=== PATIENT | male | born 1940 | race Caucasian/White ===

== ENCOUNTER 2017-01-14 20:07 | Emergency (ER) | payer OTHER ==
[2017-01-14] MEDS ORDERED: HYDROmorphONE/DILAUDID 1 MG/ML INJ IVP ONE (20:27)
[2017-01-14 20:33] VITALS: RESP 18; TEMP 98.2
--- NOTE | 2017-01-14 20:36 | EDPHY ---
H & P Stated Complaint: injuried testicles R > L. Time Seen by Provider: 01/14/17 20:26 HPI/ROS: CHIEF COMPLAINT: Bilateral testicular pain HISTORY OF PRESENT ILLNESS: Patient is a 76-year-old man with a history of polycythemia who comes to the emergency department complaining of bilateral testicular pain right greater than left. He states that this morning he set on a soft couch and sat on top of them. They have been hurting ever since. They are tender to the touch. No swelling or deformity. No discoloration. No discharge. Dysuria. He denies other injuries. No fevers. REVIEW OF SYSTEMS: Constitutional: denies: chills, fever, recent illness, recent injury EENTM: denies: blurred vision, double vision, nose congestion Respiratory: denies: cough, shortness of breath Cardiac: denies: chest pain, irregular heart rate, lightheadedness, palpitations Gastrointestinal/Abdominal: denies: abdominal pain, diarrhea, nausea, vomiting, blood streaked stools Genitourinary: See HPI Musculoskeletal: denies: joint pain, muscle pain Skin: denies: lesions, rash, jaundice, bruising Neurological: denies: headache, numbness, paresthesia, tingling, dizziness, weakness Hematologic/Lymphatic: denies: blood clots, easy bleeding, easy bruising Immunologic/allergic: denies: HIV/AIDS, transplant EXAM: GENERAL: Thin and in no acute distress. HEAD: Atraumatic, normocephalic. EYES: Pupils equal round and reactive to light, extraocular movements intact, sclera anicteric, conjunctiva are normal. ENT: TMs normal, nares patent, oropharynx clear without exudates. Moist mucous membranes. NECK: Normal range of motion, supple without lymphadenopathy or JVD. LUNGS: Breath sounds clear to auscultation bilaterally and equal. No wheezes rales or rhonchi. HEART: Regular rate and rhythm without murmurs, rubs or gallops. ABDOMEN: Soft, nontender, normoactive bowel sounds. No guarding, no rebound. No masses appreciated. : Exquisite Bilateral testicular tenderness right greater than left. No swelling or deformity. No discoloration. No erythema. No discharge. No scrotal abnormalities, no crepitus, no blackness. BACK: No CVA tenderness, no spinal tenderness, step-offs or deformities EXTREMITIES: Normal range of motion, no pitting or edema. No clubbing or cyanosis. NEUROLOGICAL: Cranial nerves II through XII grossly intact. Normal speech, normal gait. 5/5 strength, normal movement in all extremities, normal sensation PSYCH: Normal mood, normal affect. SKIN: Warm, dry, normal turgor, no visible rashes or lesions. Source: Patient Exam Limitations: No limitations - Personal History Current Tetanus/Diphtheria Vaccine: Unsure Current Tetanus Diphtheria and Acellular Pertussis (TDAP): Unsure - Medical/Surgical History Hx Asthma: No Hx Chronic Respiratory Disease: No Hx Diabetes: No Hx Cardiac Disease: No Hx Renal Disease: No Hx Cirrhosis: No Hx Alcoholism: Yes Hx HIV/AIDS: No Hx Splenectomy or Spleen Trauma: No Other PMH: HTN, polycythemia-sees Flaegle. ADD, depression, Hx alcohol abuse. back surgery, essential tremor. dental surgery - Family History Significant Family History: No pertinent family hx - Social History Smoking Status: Former smoker Alcohol Use: Sober Drug Use: None Constitutional: Initial Vital Signs Temperature (C) 36.8 C 01/14/17 20:30 Heart Rate 87 01/14/17 20:30 Respiratory Rate 18 01/14/17 20:30 Blood Pressure 145/92 H 01/14/17 20:30 O2 Sat (%) 88 L 01/14/17 20:30 O2 Delivery Mode Room Air Allergies/Adverse Reactions: clindamycin Allergy (Verified 01/14/17 20:34) prochlorperazine edisylate [From Compazine] Allergy (Verified 09/14/13 15:50) prochlorperazine maleate [From Compazine] Allergy (Verified 09/14/13 15:50) Home Medications: Medication Instructions Recorded Alprazolam 09/14/13 Aspirin 81mg (OTC) 09/14/13 Atenolol 09/14/13 Clobetasol 0.05% 09/14/13 Hydroxyurea 09/14/13 buPROPion 09/14/13 Propranolol HCl 01/14/17 Medical Decision Making - Diagnostics Imaging: Discussed imaging studies w/ house calls nurse practitioner Radiologist ED Course/Re-evaluation: 10:30 p.m. we discussed the ultrasound and exam results which are very much reassuring. Patient states that he feels much better. I did examine him again. Again no sign of infection, deformity or discoloration. No discharge. The patient's states that he has absolutely 0 tolerance for pain and that she does not suspect anything is wrong. She is very eager to go home and would like to take him now. We did discuss indications for returning. He did not provide a urine sample and does not wish to wait to do so. Differential Diagnosis: Partial list of the Differential diagnosis considered include but were not limited to; contusion, fracture and although unlikely based on the history and physical exam, I also considered infection, kidney stone, hernia, torsion. I discussed these differential diagnoses and the plan with the patient as well as the usual and expected course. The patient understands that the diagnosis is provisional and that in medicine we are not always correct and that further workup is often warranted. Usual and customary warnings were given. All of the patient's questions were answered. The patient was instructed to return to the emergency department should the symptoms at all worsen or return, otherwise to followup with the physician as we discussed. - Data Points Laboratory Results: Laboratory Results 01/14/17 20:40 01/14/17 20:40 Medications Given: Discontinued Medications Hydromorphone HCl (Dilaudid) 0.5 mg IVP EDNOW ONE Stop: 01/14/17 20:28 Last Admin: 01/14/17 20:40 Dose: 0.5 mg Departure - Departure Disposition: Home, Routine, Self-Care Clinical Impression: Testicular pain Condition: Fair Instructions: Testicle Pain (ED) Referrals: NONE *PRIMARY CARE P,. [Primary Care Provider] - As per Instructions Cyril Rogel MD [Medical Doctor] - As per Instructions
[2017-01-14 21:17] LABS: CALCIUM 9.1 mg/dL (8.5-10.4); CREATININE 1.4 mg/dL (0.7-1.3); POTASSIUM 4.8 mEq/L (3.5-5.2)
[2017-01-14 21:43] LABS: % IMMATURE GRANULYOCYTES 1.5 % (0.0-1.1); ABSOLUTE IMMATURE GRANULOCYTES 0.14 10^3/uL (0.00-0.10); ADD DIFF? NO; HEMATOCRIT 49.2 % (40.0-51.0); HEMOGLOBIN 18.2 g/dL (13.7-17.5); MEAN CELL HEMOGLOBIN 49.3 pg (27.9-34.1); MEAN PLATELET VOLUME 8.8 fL (8.7-11.7); PLATELET COUNT 418 10^3/uL (150-400); RED BLOOD CELL COUNT 3.69 10^6/uL (4.40-6.38); RED CELL DISTRIBUTION WIDTH 12.4 % (11.5-15.2)
[2017-01-14 21:44] LABS: ADD MORPH? YES; ADD SCAN? NO; MEAN CELL VOLUME 133.3 fL (81.5-99.8)
[2017-01-14 22:14] LABS: MACROCYTES 3+; PLATELET ESTIMATE INCREASED (ADEQ)
[2017-01-14 22:57] VITALS: BP 135/88; PULSE 88; O2SAT 89
== END 2017-01-14 22:57 | disposition home or self-care (01) ==
LOC: CED 20:07
DX: N50.811 Right testicular pain (principal); N50.812 Left testicular pain; I10 Essential (primary) hypertension; Z79.82 Long term (current) use of aspirin; Z87.891 Personal history of nicotine dependence
CPT/HCPCS: 76870-PO; 80048-PO; 85025-PO; 96374; J1170